=== PATIENT | female | born 1950 | race Caucasian/White ===

== ENCOUNTER 2023-04-08 06:55 | Day surgery (SDC) | payer MEDICARE ==
[2023-04-07 09:23] VITALS: BMI 27.8
[2023-04-08] MEDS ORDERED: Midazolam HCl 2 mg/2 ml Vial ONE (11:42)
[2023-04-08] MEDS ORDERED: Oxymetazoline HCl 0.05% ( 15 ML ) ONE (13:09)
[2023-04-08] MEDS ORDERED: PROPOFOL 20 ML ONE (13:25)
[2023-04-08] MEDS ORDERED: Fentanyl 250 MCG/5 ML VIAL ONE (13:25)
[2023-04-08] MEDS ORDERED: Lidocaine 1% PF 5 ML VIAL ONE (13:26)
[2023-04-08] MEDS ORDERED: Lidocaine 4% PF 5 ML AMP ONE (13:36)
[2023-04-08] MEDS ORDERED: Glycopyrrolate 0.2 MG/ML 5 ML SYRINGE ONE (13:36)
[2023-04-08] MEDS ORDERED: Rocuronium Bromide 10 MG/ML (10ML VIAL) ONE (13:36)
[2023-04-08] MEDS ORDERED: Dexamethasone 20 MG/5 ML VIAL ONE (13:36)
[2023-04-08] MEDS ORDERED: Ondansetron PF 4 MG/2 ML Vial ONE (13:36)
[2023-04-08] MEDS ORDERED: Lidocaine 2% PF 5 ML VIAL ONE (13:37)
[2023-04-08] MEDS ORDERED: Atropine Sulfate 0.4 mg/1 ml Vial ONE (13:37)
[2023-04-08] MEDS ORDERED: PHENYLEPHRINE-NS 100 MCG/ML 10 ML SYRINGE ONE ×2 (13:37→13:47)
[2023-04-08] MEDS ORDERED: Lidocaine 1% w/Epinephrine 1:100K 20 ML VIAL ONE (13:46)
[2023-04-08] MEDS ORDERED: Succinylcholine 200 MG/10 ml SYRINGE FS ONE (13:54)
[2023-04-08] MEDS ORDERED: Mupirocin 2% Ointment 22 GM Tube ONE (14:37)
[2023-04-08] MEDS ORDERED: Fentanyl 100 MCG/2 ML VIAL ONE ×2 (15:04→15:18)
[2023-04-08] MEDS ORDERED: HYDROcodone/Acetaminophen 5/325 mg Tablet ONE (15:40)
== END 2023-04-08 16:45 | disposition home or self-care (01) ==
LOC: CSHSDC 06:55
PROVIDERS: ATTEND Otolaryngology Otolaryngic Allergy
PROC: 09BK0ZZ Excision of Nasal Mucosa and Soft Tissue, Open Approach (ICD-10-PCS; principal; 2023-04-08)
DX: C30.0 Malignant neoplasm of nasal cavity (principal); I10 Essential (primary) hypertension; J30.9 Allergic rhinitis, unspecified; F41.9 Anxiety disorder, unspecified; Z98.51 Tubal ligation status; Z90.710 Acquired absence of both cervix and uterus; Z88.0 Allergy status to penicillin; Z88.1 Allergy status to other antibiotic agents; Z88.8 Allergy status to other drugs, medicaments and biological substances; Z79.899 Other long term (current) drug therapy; E11.9 Type 2 diabetes mellitus without complications; Z85.3 Personal history of malignant neoplasm of breast; Z87.891 Personal history of nicotine dependence
CPT/HCPCS: 88304; 88305; 88331; 88332; J0461; J1100; J2001; J2250; J2405; J2704; J3010